=== PATIENT | male | born 1955 | race Caucasian/White ===

== ENCOUNTER → 2019-01-07 | Day surgery (SDC) | payer BC ==
[~2019-01-07] MED LIST: Buffered Lidocaine 1% SYRIN* 1 ML/SYRINGE INTRADERM ONE; Dexamethasone TAB* 4 MG ONE; Dexamethasone TAB* 4 MG PO ONE; DiMENhydriNATE IV* 50 MG/ML VIAL IV PUSH PRN; Famotidine IV* 10 MG/ML 2 ML (20 mg) IV ONE; Famotidine IV* 10 MG/ML 2 ML (20 mg) ONE; Gelfoam 12-7 ADSORBABL SPONGE* 1 EA SPONGE ONE; HYDROmorphone INJ1* 1 MG/ML SYRINGE IV PRN; KETAMINE HCL* 50 MG/ML 10 ML VIAL ONE; Lactated Ringers 1000 ML Bag* 1,000 ML IV SCH; Lidocaine 2% PF * 5 ML VIAL ONE; Lidocaine 2% w/ EPI 1:200,000* 20 ML SDV VIAL ONE; Midazolam* 1 MG/ML 5 ML VIAL (5 MG) ONE; Naloxone* 0.4 MG/ML 1 ML VIAL IV PRN; Ondansetron INJ* 2 MG/ML VIAL ONE; Ondansetron ODT TAB* 4 MG ONE; Ondansetron ODT TAB* 4 MG PO ONE; Ondansetron TAB* 4 MG PO ONE; Oxymetazoline 0.05% NASAL SPR* 15 ML BTL ONE; PROCHLORPERAZINE INJ 5 MG/ML 2 ML VIAL IV PRN; Propofol* 10 MG/ML 20 ML BTL ONE; Scopolamine 1.5 mg* PATCH TRANSDERM PRN; Scopolamine PATCH Remove* 1 NOTE MISC PATCH OFF ONE; Triamcinolone Acetonide* 40 MG/ML 1 ML VIAL ONE; fentaNYL* 50 MCG/ML 2 ML VIAL (100 MCG VIAL) IV PRN; fentaNYL* 50 MCG/ML 2 ML VIAL (100 MCG VIAL) ONE; hydrALAZINE IV* 20 MG/ML VIAL ONE; oxyCODONE/Acetamin 5/325 MG* TAB PO PRN
[2019-01-07 17:45] VITALS: BP 142/75
--- NOTE | 2019-01-07 21:15 | OP ---
DATE OF OPERATION: 01/07/19 - [facility] DATE OF : 53 SURGEON: David Evans M.D. PRE-OP DIAGNOSES: Chronic sinusitis, history of previous endoscopic sinus surgery, continued with recurring symptoms of sinusitis. POST-OP DIAGNOSIS: OPERATIVE PROCEDURE: Bilateral endoscopic maxillary antrostomy. DESCRIPTION OF PROCEDURE: The patient was taken to the operating room. General anesthetic was given. The patient was intubated with an LMA. Nose was decongested with Afrin placed pledgets. A 2% lidocaine was infiltrated into the uncinate region and into the middle turbinate region. The middle turbinate was adherent on the right side, the left side was elevated, there was a synechia between the antral opening and what I felt was natural opening. I used a back-biter to open it further, enlarged the antrum still further, cleaned out the maxillary antrum. I packed the area with Gelfoam and soaked with steroid. We turned our attention to the right side. Here again the middle turbinate was elevated off the lateral wall. Antrostomy was further enlarged. This seemed to be quite a narrow antrum and I felt like we would have to remove some of the inferior turbinate bone to enlarge it. I thought the antrostomy was wide enough. With this in mind, I packed the area with Gelfoam. The patient was then awakened and sent to recovery room in stable condition. Instrument and sponge counts correct. Blood loss minimal. [id number] #: [id number] MTDD
== END | disposition home or self-care (01) ==
LOC: OR 11:52
PROVIDERS: ATTEND Otolaryngology
DX: J32.9 Chronic sinusitis, unspecified (principal); J31.0 Chronic rhinitis; E78.5 Hyperlipidemia, unspecified
CPT/HCPCS: A9270-GY; J0360; J2250; J2405; J2704; J3010; J3301; J8540